=== PATIENT | female | born 1950 | race Two or more races ===

== ENCOUNTER 2024-06-17 15:00 | Emergency (ER) | payer OTHER ==
[~2024-06-17] VITALS: Ht 152.4 cm; Wt 61.7 kg
[2024-06-17] MEDS ORDERED: DICY20TA (15:17)
[2024-06-17] MEDS ORDERED: FIBER-LAX625 MG (15:18)
[2024-06-17] MEDS ORDERED: CHOLESTYRAMINE R5 GM (15:18)
[2024-06-17] MEDS ORDERED: TENCON 50-3251 EACH (15:19)
[2024-06-17] MEDS ORDERED: LIPITOR20 MG (15:19)
[2024-06-17] MEDS ORDERED: PEPCID AC20 MG (15:19)
[2024-06-17] MEDS ORDERED: PROTONIX40 MG (15:19)
[2024-06-17] MEDS ORDERED: LOSARTAN-HCTZ1 EAC1 (15:19)
[2024-06-17] MEDS ORDERED: ALLERGY RELIE15.8 ML (15:19)
[2024-06-17] MEDS ORDERED: XELPROS2.5 ML (15:20)
[2024-06-17] MEDS ORDERED: CARAFATE1 GM (15:20)
[2024-06-17] MEDS ORDERED: FAMOTIDINE/PF 20 MG in 0.9 % SODIUM CHLORIDE 8 ML IV PUSH STA (16:38)
[2024-06-17] MEDS ORDERED: ONDANSETRON HCL 2 MG/ML VIAL IV ONE (16:45)
[2024-06-17] MEDS ORDERED: KETOROLAC TROMETHAMINE 30 MG VIAL IV ONE (16:45)
[2024-06-17 17:23] LABS: HEMATOCRIT 41.1 % (36.0-45.00); HEMOGLOBIN 14.1 g/dL (12.0-15.00); MEAN CELL VOLUME 87.8 fL (80.00-100.00); MEAN CORPUSCULAR HEMOGLOBIN 30.1 pg (27.00-32.0); MEAN CORPUSCULAR HGB CONC 34.2 g/dl (32.0-36.0); PLATELET COUNT 281 K/uL (150-450); RED BLOOD COUNT 4.68 M/uL (4.00-6.00); RED CELL DISTRIBUTION WIDTH 14.1 % (11.5-14.5)
[2024-06-17 17:40] LABS: INR 1.01; PARTIAL THROMBOPLASTIN TIME 24.7 SECONDS (22.0-34.0)
[2024-06-17 17:43] LABS: ALBUMIN 3.8 gm/dL (3.4-5.0); BILIRUBIN TOTAL 0.24 mg/dL (0.3-1.2); CALCIUM 9.5 mg/dL (8.5-10.1); CREATININE SERUM 0.73 mg/dL (0.55-1.02); GFR 77.93; GLOBULINA 3.8 G/DL (2.4-3.5); POTASSIUM 3.92 mEq/L (3.5-5.1); TOTAL PROTEIN 7.6 gm/dL (6.4-8.2)
[2024-06-17] MEDS ORDERED: MEPERIDINE HCL/PF 25 MG/ML VIAL IM ONE (21:30)
[2024-06-17] MEDS ORDERED: PEPCID AC20 MG PO (23:59)
[2024-06-17] MEDS ORDERED: LEVSIN/SL0.125 MG SL (23:59)
== END 2024-06-18 00:31 | disposition home or self-care (01) ==
LOC: ER 15:00
PROVIDERS: General Practice
DX: R10.32 Left lower quadrant pain (principal); R10.9 Unspecified abdominal pain; I10 Essential (primary) hypertension; E11.9 Type 2 diabetes mellitus without complications
CPT/HCPCS: 36415; 74177; Q9965

== ENCOUNTER 2024-09-26 09:41 | Inpatient (IN) | payer OTHER ==
[~2024-09-26] VITALS: Ht 61 cm; Wt 64.9 kg
[~2024-09-26 09:41] MED LIST: ALLERGY RELIE15.8 ML; CARAFATE1 GM; CHOLESTYRAMINE R5 GM; DICY20TA; FIBER-LAX625 MG; LEVSIN/SL0.125 MG SL; LIPITOR20 MG; LOSARTAN-HCTZ1 EAC1; PEPCID AC20 MG; PEPCID AC20 MG PO; PROTONIX40 MG; TENCON 50-3251 EACH; XELPROS2.5 ML
[2024-09-26] MEDS ORDERED: COLACE100 MG PO (10:56)
[2024-09-26] MEDS ORDERED: LIPITOR20 MG (10:57)
[2024-09-30] MEDS ORDERED: CEFTRIAXONE SODIUM 2,000 MG VIAL ONE (07:06)
[2024-09-30] MEDS ORDERED: METRONIDAZOLE/SODIUM CHLORIDE 500 MG/100 ML PIGGYBACK IV ONE (07:06)
[2024-09-30] MEDS ORDERED: BUPIVACAINE HCL 30 ML VIAL IJ ONE (08:30)
[2024-09-30] MEDS ORDERED: LIDOCAINE HCL 1%/EPINEPHRINE 20ML VIAL IJ SCH (08:30)
[2024-09-30] MEDS ORDERED: MORPHINE SULFATE 4 MG/ML CARTRIDGE IV PRN (10:00)
[2024-09-30] MEDS ORDERED: DEXTROSE 50 % IN WATER 0.5 G/ML DISP.SYRIN IV PRN (10:00)
[2024-09-30] MEDS ORDERED: OxyCODONE HCL 5 MG TABLET (ROXICODONE) PO PRN (10:00)
[2024-09-30] MEDS ORDERED: 0.9 % SODIUM CHLORIDE 1,000 ML IV SCH (10:00)
[2024-09-30] MEDS ORDERED: ONDANSETRON HCL 2 MG/ML VIAL IV PRN (10:00)
[2024-09-30] MEDS ORDERED: MORPHINE SULFATE 4 MG/ML VIAL IV ONE ×3 (10:10→11:15)
[2024-09-30 11:33] LABS: HEMATOCRIT 37.1 % (36.0-45.00); HEMOGLOBIN 12.7 g/dL (12.0-15.00); MEAN CELL VOLUME 88.1 fL (80.00-100.00); MEAN CORPUSCULAR HEMOGLOBIN 30.2 pg (27.00-32.0); MEAN CORPUSCULAR HGB CONC 34.3 g/dl (32.0-36.0); PLATELET COUNT 311 K/uL (150-450); RED BLOOD COUNT 4.21 M/uL (4.00-6.00); RED CELL DISTRIBUTION WIDTH 13.8 % (11.5-14.5)
[2024-09-30] MEDS ORDERED: ALBUTEROL SULFATE 3 ML/2.5 MG AMPUL.NEB IH SCH (12:30)
[2024-09-30] MEDS ORDERED: ENALAPRILAT DIHYDRATE 1.25 MG/ML VIAL IV PRN (12:30)
[2024-09-30 12:51] LABS: ALBUMIN 3.4 gm/dL (3.4-5.0); CALCIUM 8.7 mg/dL (8.5-10.1); CREATININE SERUM 0.8 mg/dL (0.55-1.02); GFR 70.12; MAGNESIUM 1.9 mg/dL (1.8-2.4); PHOSPHOROUS 3.8 mg/dL (2.5-4.9); POTASSIUM 3.68 mEq/L (3.5-5.1)
[2024-09-30 13:48] VITALS: BP 135/65; O2SAT 97
[2024-09-30] MEDS ORDERED: ACETAMINOPHEN 500 MG GEL..CAP PO SCH (14:00)
[2024-09-30 16:00] VITALS: BP 133/79; O2SAT 93
[2024-09-30] MEDS ORDERED: GABAPENTIN 300 MG CAPSULE PO SCH (17:00)
[2024-09-30] MEDS ORDERED: HYOSCYAMINE SULFATE 0.125 MG TAB.SUBL SL SCH (17:00)
[2024-09-30] MEDS ORDERED: POLYETHYLENE GLYCOL 3350 17 GM BLIST.PACK PO SCH (17:00)
[2024-09-30] MEDS ORDERED: CELECOXIB 200 MG CAPSULE PO SCH (21:00)
[2024-09-30] MEDS ORDERED: FAMOTIDINE/PF 20 MG/2 ML VIAL IV PUSH SCH (21:00)
[2024-10-01] VITALS: BP 164/79; O2SAT 99
[2024-10-01 07:47] LABS: HEMOGLOBIN 13.5 g/dL (12.0-15.00); MEAN CELL VOLUME 90.1 fL (80.00-100.00); MEAN CORPUSCULAR HEMOGLOBIN 29.5 pg (27.00-32.0); MEAN CORPUSCULAR HGB CONC 32.8 g/dl (32.0-36.0); PLATELET COUNT 251 K/uL (150-450); RED BLOOD COUNT 4.56 M/uL (4.00-6.00); RED CELL DISTRIBUTION WIDTH 13.3 % (11.5-14.5)
[2024-10-01 08:00] VITALS: BP 158/70; O2SAT 99
[2024-10-01 08:56] LABS: ALBUMIN 3.3 gm/dL (3.4-5.0); CALCIUM 8.6 mg/dL (8.5-10.1); CREATININE SERUM 0.58 mg/dL (0.55-1.02); GFR 101.62; PHOSPHOROUS 2.5 mg/dL (2.5-4.9); POTASSIUM 3.82 mEq/L (3.5-5.1)
[2024-10-01] MEDS ORDERED: LOSARTAN/HYDROCHLOROTHIAZIDE 1 TAB TABLET PO SCH (09:00)
[2024-10-01] MEDS ORDERED: ENOXAPARIN SODIUM 40 MG/0.4 ML SYRINGE SUBCUTANEO SCH (17:00)
[2024-10-01] MEDS ORDERED: ATORVASTATIN CALCIUM 20 MG TABLET PO SCH (17:00)
[2024-10-01 19:38] VITALS: BP 128/62; O2SAT 98
[2024-10-02 00:30] VITALS: BP 120/55; O2SAT 98
[2024-10-02 08:25] VITALS: BP 145/67; O2SAT 97
[2024-10-02] MEDS ORDERED: ENOXAPARIN SODIUM 40 MG/0.4 ML SYRINGE SUBCUTANEO SCH (09:00)
[2024-10-02 16:00] VITALS: BP 151/73; O2SAT 99
[2024-10-02 16:55] LABS: HEMATOCRIT 40.1 % (36.0-45.00); HEMOGLOBIN 13.4 g/dL (12.0-15.00); MEAN CORPUSCULAR HGB CONC 33.4 g/dl (32.0-36.0); PLATELET COUNT 265 K/uL (150-450); RED BLOOD COUNT 4.46 M/uL (4.00-6.00); RED CELL DISTRIBUTION WIDTH 13.2 % (11.5-14.5)
[2024-10-02 17:21] LABS: CALCIUM 9.1 mg/dL (8.5-10.1); CREATININE SERUM 0.63 mg/dL (0.55-1.02); GFR 92.37; MAGNESIUM 2.1 mg/dL (1.8-2.4); POTASSIUM 3.62 mEq/L (3.5-5.1)
[2024-10-02 17:33] LABS: PHOSPHOROUS 1.7 mg/dL (2.5-4.9)
[2024-10-03 01:20] VITALS: BP 101/51; O2SAT 100
[2024-10-03 08:00] VITALS: BP 143/64; O2SAT 98
[2024-10-03] MEDS ORDERED: BISMUTH SUBSALICYLATE 524 MG/30 ML BLIST.PACK PO PRN ×2 (13:30→19:15)
[2024-10-03 16:00] VITALS: BP 154/65; O2SAT 98
[2024-10-03] MEDS ORDERED: ALBUTEROL SULFATE 3 ML/2.5 MG AMPUL.NEB IH SCH (17:00)
[2024-10-03] MEDS ORDERED: FAMOtidine 20 MG TABLET PO SCH (21:00)
[2024-10-04] VITALS: BP 160/74; O2SAT 98
[2024-10-04 08:00] VITALS: BP 148/88; O2SAT 95
[2024-10-04] MEDS ORDERED: LOPERAMIDE HCL 2 MG CAPSULE PO PRN (08:15)
[2024-10-04] MEDS ORDERED: levoFLOXacin IN DEXTROSE 5 % 100 ML IV SCH (09:00)
[2024-10-04] MEDS ORDERED: METRONIDAZOLE/SODIUM CHLORIDE 100 ML IV SCH (09:00)
[2024-10-04 17:00] VITALS: BP 109/71; O2SAT 95
[2024-10-05 00:53] VITALS: BP 100/56; O2SAT 98
[2024-10-05 08:00] VITALS: BP 138/62; O2SAT 95
[2024-10-05 17:25] VITALS: BP 145/71; O2SAT 98
[2024-10-05 19:16] LABS: HEMATOCRIT 37.7 % (36.0-45.00); HEMOGLOBIN 12.6 g/dL (12.0-15.00); MEAN CELL VOLUME 89.8 fL (80.00-100.00); MEAN CORPUSCULAR HGB CONC 33.4 g/dl (32.0-36.0); PLATELET COUNT 296 K/uL (150-450); RED CELL DISTRIBUTION WIDTH 13.2 % (11.5-14.5)
[2024-10-05 19:47] LABS: CALCIUM 9.1 mg/dL (8.5-10.1); CREATININE SERUM 0.66 mg/dL (0.55-1.02); GFR 87.54; MAGNESIUM 1.8 mg/dL (1.8-2.4); PHOSPHOROUS 3.7 mg/dL (2.5-4.9); POTASSIUM 3.88 mEq/L (3.5-5.1)
[2024-10-06] VITALS: BP 105/65; O2SAT 96
[2024-10-06 08:00] VITALS: BP 113/75; O2SAT 95
[2024-10-06 16:00] VITALS: BP 132/68; O2SAT 96
[2024-10-06] MEDS ORDERED: CHOLESTYRAMINE/ASPARTAME LIGHT 4 G/PKT PACKET PO SCH (17:00)
[2024-10-07] VITALS: BP 113/55; O2SAT 96
[2024-10-07 07:50] VITALS: BP 121/64; O2SAT 93
[2024-10-07] MEDS ORDERED: DIATRIZOATE MEGLUMINE, SODIUM 30 ML BOTTLE PO NR (11:30)
[2024-10-07 16:00] VITALS: BP 94/64; O2SAT 95
[2024-10-07] MEDS ORDERED: PANTOPRAZOLE SODIUM 40 MG/VIAL VIAL IV PUSH SCH (17:00)
[2024-10-07] MEDS ORDERED: SUCRALFATE 1 G TABLET PO SCH (17:00)
[2024-10-07] MEDS ORDERED: CEFTRIAXONE SODIUM 2,000 MG VIAL IV SCH (17:00)
[2024-10-07] MEDS ORDERED: DIATRIZOATE MEGLUMINE, SODIUM 30 ML BOTTLE ONE (20:43)
[2024-10-07] MEDS ORDERED: ONDANSETRON HCL 2 MG/ML VIAL ONE (20:50)
[2024-10-08 00:55] VITALS: BP 117/65; O2SAT 100
[2024-10-08 08:00] VITALS: BP 137/80; O2SAT 99
[2024-10-08 11:35] LABS: HEMATOCRIT 35.7 % (36.0-45.00); HEMOGLOBIN 12.2 g/dL (12.0-15.00); MEAN CELL VOLUME 88.4 fL (80.00-100.00); MEAN CORPUSCULAR HEMOGLOBIN 30.3 pg (27.00-32.0); MEAN CORPUSCULAR HGB CONC 34.2 g/dl (32.0-36.0); PLATELET COUNT 334 K/uL (150-450); RED BLOOD COUNT 4.03 M/uL (4.00-6.00); RED CELL DISTRIBUTION WIDTH 13.8 % (11.5-14.5)
[2024-10-08 12:36] LABS: ALBUMIN 2.8 gm/dL (3.4-5.0); CALCIUM 8.4 mg/dL (8.5-10.1); CREATININE SERUM 0.61 mg/dL (0.55-1.02); GFR 95.88; PHOSPHOROUS 2.7 mg/dL (2.5-4.9)
[2024-10-08 16:51] VITALS: BP 130/62; O2SAT 98
[2024-10-09 02:36] VITALS: BP 120/59; O2SAT 98
[2024-10-09 08:00] VITALS: BP 132/66; O2SAT 96
[2024-10-09] MEDS ORDERED: HYOSCYAMINE0.125 M1 SL (08:19)
[2024-10-09] MEDS ORDERED: TRAM1TAB98 PO (08:19)
[2024-10-09] MEDS ORDERED: PEPCID AC20 MG PO (08:20)
[2024-10-09] MEDS ORDERED: ZOFRAN8 MG PO (08:20)
[2024-10-09] MEDS ORDERED: INTESTINEX680 M1 PO (08:20)
[2024-10-09] MEDS ORDERED: PROTONIX40 MG PO (08:21)
[2024-10-09] MEDS ORDERED: METRONIDAZOLE500 MG PO (08:21)
[2024-10-09] MEDS ORDERED: CHOLESTYRAMINE L4 GM PO (08:22)
[2024-10-09] MEDS ORDERED: ONDANSETRON HCL 4 MG in 0.9 % SODIUM CHLORIDE 50 ML IV PRN (08:30)
[2024-10-09 16:00] VITALS: BP 125/79; O2SAT 100
== END 2024-10-09 21:52 | disposition home or self-care (01) | DRG 330 ==
LOC: O/R 09-30 05:20 → SURH 09-30 05:20 → SURG 09-30 11:15 → SURH 09-30 12:11 → SURG 09-30 13:45 → SURH 10-09 21:52
PROVIDERS: Internal Medicine Geriatric Medicine; ADMIT Surgery; ATTEND Surgery
PROC: 0DBP4ZZ Excision of Rectum, Percutaneous Endoscopic Approach (ICD-10-PCS; 2024-09-30)
PROC: 0DTN4ZZ Resection of Sigmoid Colon, Percutaneous Endoscopic Approach (ICD-10-PCS; principal; 2024-09-30 13:45)
PROC: 3E0F7GC Introduction of Other Therapeutic Substance into Respiratory Tract, Via Natural or Artificial Opening (ICD-10-PCS; 2024-10-01)
PROC: 02HV33Z Insertion of Infusion Device into Superior Vena Cava, Percutaneous Approach (ICD-10-PCS; 2024-10-07)
DX: K57.32 Diverticulitis of large intestine without perforation or abscess without bleeding (principal); K52.1 Toxic gastroenteritis and colitis; T50.8X5A Adverse effect of diagnostic agents, initial encounter; N73.6 Female pelvic peritoneal adhesions (postinfective); J45.20 Mild intermittent asthma, uncomplicated; R10.32 Left lower quadrant pain; R19.4 Change in bowel habit; E03.9 Hypothyroidism, unspecified; I10 Essential (primary) hypertension; Y92.230 Patient room in hospital as the place of occurrence of the external cause